=== PATIENT | male | born 1960 | race Caucasian/White ===

== ENCOUNTER 2017-08-28 13:11 | Emergency (ER) | payer OTHER ==
[2017-08-28] MEDS: LIDOCAINE 2% JELLY 5 ML TOP (16:30)
[2017-08-28] MEDS ORDERED: DIATR MEGLU/DIATRIZOATE SODIUM 30 ML SOLUTION PO (17:30)
[2017-08-28] MEDS ORDERED: DIATR MEGLU/DIATRIZOATE SODIUM 120 ML BTL (17:41)
== END 2017-08-28 18:43 | disposition home or self-care (01) ==
LOC: E/R 13:11
DX: Z43.1 Encounter for attention to gastrostomy (principal)
CPT/HCPCS: 43760; 74018; 99284-25

== ENCOUNTER 2018-02-26 12:22 | Emergency (ER) | payer OTHER ==
[2018-02-26] MEDS: DIATR MEGLU/DIATRIZOATE SODIUM 120 ML BTL (13:47)
== END 2018-02-26 14:07 | disposition home or self-care (01) ==
LOC: E/R 12:22
DX: Z43.1 Encounter for attention to gastrostomy (principal); R40.2142 Coma scale, eyes open, spontaneous, at arrival to emergency department; R40.2252 Coma scale, best verbal response, oriented, at arrival to emergency department; R40.2362 Coma scale, best motor response, obeys commands, at arrival to emergency department; Z87.891 Personal history of nicotine dependence
CPT/HCPCS: 43760; 49465; 74018; 99284-25

== ENCOUNTER 2018-10-03 12:28 | Emergency (ER) | payer OTHER ==
[2018-10-03] MEDS: IOHEXOL 300MG/ML 30 ML BTL (17:15)
[2018-10-03] MEDS: DIATR MEGLU/DIATRIZOATE SODIUM 30 ML SOLUTION PO (17:15)
== END 2018-10-03 17:59 | disposition home or self-care (01) ==
LOC: E/R 12:28
DX: K94.23 Gastrostomy malfunction (principal); Z43.1 Encounter for attention to gastrostomy; Z79.82 Long term (current) use of aspirin; Z85.819 Personal history of malignant neoplasm of unspecified site of lip, oral cavity, and pharynx
CPT/HCPCS: 74018; 99284-25